=== PATIENT | female | born 1965 | race Caucasian/White ===

== ENCOUNTER → 2020-08-06 | Day surgery (SDC) | payer BC, OTHER ==
[~2020-08-06] MED LIST: APRISO0.375 GM PO; CARAFATE1 GM PO; ESTRACE1 MG PO; PREVACID30 MG PO; PRINIVIL10 MG PO; STELARA90 MG/1 ML SQ
== END | disposition home or self-care (01) ==
LOC: OR 07-23 13:15
DX: K50.10 Crohn's disease of large intestine without complications (principal); I10 Essential (primary) hypertension; F32.9 Major depressive disorder, single episode, unspecified; Z79.899 Other long term (current) drug therapy
CPT/HCPCS: J2704; J7040

== ENCOUNTER → 2020-12-21 | Outpatient (CLI) | payer BC, OTHER ==
[2020-12-21 14:54] LABS: HEMOGLOBIN 15.2 gm/dl (12.3-15.3); RED BLOOD COUNT 4.71 M/UL (4.00-5.10); WHITE BLOOD COUNT 8.8 K/UL (4.5-11.0)
== END ==
LOC: LAB 14:05
PROVIDERS: Internal Medicine Gastroenterology
DX: K50.10 Crohn's disease of large intestine without complications (principal)
CPT/HCPCS: 85027

== ENCOUNTER → 2021-04-26 | Outpatient (CLI) | payer BC, OTHER ==
[2021-04-26 16:09] LABS: HEMOGLOBIN 14.7 gm/dl (12.3-15.3); RED BLOOD COUNT 4.49 M/UL (4.00-5.10)
== END ==
LOC: LAB 15:30
PROVIDERS: Internal Medicine Gastroenterology
DX: K50.10 Crohn's disease of large intestine without complications (principal)
CPT/HCPCS: 36415; 85027

== ENCOUNTER → 2022-01-26 | Day surgery (SDC) | payer BC, OTHER ==
[~2022-01-26] MED LIST changes: +CHLORTRIMETON 44 MG GT; +MERCAPTOPURINE50 MG PO; +PROTONIX40 M1 PO; +VITAMIN D21250 MCG PO
== END | disposition home or self-care (01) ==
LOC: OR 05:31
DX: K52.9 Noninfective gastroenteritis and colitis, unspecified (principal); K63.3 Ulcer of intestine; K50.10 Crohn's disease of large intestine without complications; K64.0 First degree hemorrhoids; I10 Essential (primary) hypertension
CPT/HCPCS: J2704; J7040